=== PATIENT | female | born 1995 | race Caucasian/White ===

== ENCOUNTER 2017-03-21 08:27 | Emergency (ER) | payer OTHER ==
[~2017-03-21] VITALS: Ht 167.6 cm; Wt 81.7 kg
[~2017-03-21 08:27] MED LIST: ALLEGRA-D 12 H1 EAC1 PO; DEPO-SUBQ104 MG/0.6 SQ; IBUPROFEN 600600 M1 PO; MIDOL220 MG PO; MINOCIN100 MG; NOHOMEMEDICATIONS; TESSALON PERLE100 MG PO; VICODIN 5-5001 EACH PO; ZOFRAN ODT4 MG PO
[2017-03-21 08:51] LABS: URINE BILIRUBIN NEGATIVE (Negative); URINE BLOOD 3+ (Negative); URINE COLOR YELLOW; URINE GLUCOSE-RANDOM* NEGATIVE (Negative); URINE KETONES TRACE (Negative); URINE NITRITE NEGATIVE (Negative); URINE PROTEIN (DIPSTICK) NEGATIVE (Negative); URINE SPECIFIC GRAVITY 1.015 (1.003-1.035); URINE UROBILINOGEN 0.2 E.U./dl (0.2-1.0)
[2017-03-21 09:03] LABS: SQUAMOUS >10 Many /LPF (0-3)
[2017-03-21 09:04] LABS: CASTS None Seen /LPF (None Seen); CRYSTALS None Seen /LPF (None Seen); URINE WBC 0-5 Rare /HPF (0-5)
[2017-03-21 09:05] LABS: URINE RBC 3-10 Few /HPF (0-2)
[2017-03-21] MEDS ORDERED: ONDANSETRON HCL4 M2 PO ×2 (12:08→12:12)
[2017-03-21 12:22] VITALS: BP 94/44
== END 2017-03-21 12:15 | disposition home or self-care (01) ==
LOC: ER 08:27
PROVIDERS: Nurse Practitioner
DX: O21.9 Vomiting of pregnancy, unspecified (principal); Z3A.01 Less than 8 weeks gestation of pregnancy

== ENCOUNTER 2018-09-22 07:01 | Emergency (ER) | payer OTHER ==
[~2018-09-22] VITALS: Ht 167.6 cm; Wt 72.6 kg
[~2018-09-22 07:01] MED LIST changes: +ONDANSETRON HCL4 M2 PO
[2018-09-22 07:31] LABS: URINE BILIRUBIN NEGATIVE (Negative); URINE BLOOD NEGATIVE (Negative); URINE CLARITY CLEAR; URINE COLOR YELLOW; URINE GLUCOSE-RANDOM* NEGATIVE (Negative); URINE KETONES NEGATIVE (Negative); URINE LEUKOCYTES-REFLEX NEGATIVE (Negative); URINE NITRITE-REFLEX NEGATIVE (Negative); URINE PROTEIN (DIPSTICK) NEGATIVE (Negative); URINE SPECIFIC GRAVITY >= 1.030 (1.005-1.035); URINE UROBILINOGEN 0.2 E.U./dl (0.2-1.0)
[2018-09-22] MEDS ORDERED: PROTONIX40 MG PO (07:51)
[2018-09-22] MEDS ORDERED: ZOFRAN ODT4 MG PO (07:52)
[2018-09-22 07:54] VITALS: BP 113/68
== END 2018-09-22 07:58 | disposition home or self-care (01) ==
LOC: ER 07:01
PROVIDERS: Emergency Medicine
DX: R10.12 Left upper quadrant pain (principal); R11.10 Vomiting, unspecified; R05 Cough; R19.7 Diarrhea, unspecified; G40.909 Epilepsy, unspecified, not intractable, without status epilepticus

== ENCOUNTER 2019-01-19 13:50 | Emergency (ER) | payer OTHER ==
[~2019-01-19] VITALS: Ht 167.6 cm; Wt 72.6 kg
[~2019-01-19 13:50] MED LIST changes: +PROTONIX40 MG PO
[2019-01-19 13:55] VITALS: BP 112/43
[2019-01-19 14:07] LABS: URINE BILIRUBIN NEGATIVE (Negative); URINE BLOOD NEGATIVE (Negative); URINE CLARITY CLEAR; URINE COLOR YELLOW; URINE GLUCOSE-RANDOM* NEGATIVE (Negative); URINE KETONES NEGATIVE (Negative); URINE LEUKOCYTES-REFLEX NEGATIVE (Negative); URINE NITRITE-REFLEX NEGATIVE (Negative); URINE PROTEIN (DIPSTICK) NEGATIVE (Negative); URINE SPECIFIC GRAVITY 1.015 (1.005-1.035); URINE UROBILINOGEN 0.2 E.U./dl (0.2-1.0)
== END 2019-01-19 14:55 | disposition home or self-care (01) ==
LOC: ER 13:50
PROVIDERS: Physician Assistant
DX: N89.8 Other specified noninflammatory disorders of vagina (principal); R30.0 Dysuria

== ENCOUNTER 2021-05-29 19:22 | Emergency (ER) | payer OTHER ==
[~2021-05-29] VITALS: Ht 170.2 cm; Wt 104.3 kg
[2021-05-29 19:28] VITALS: BP 133/70
== END 2021-05-29 22:38 | disposition home or self-care (01) ==
LOC: ER 19:22
PROVIDERS: Nurse Practitioner
DX: J06.9 Acute upper respiratory infection, unspecified (principal); Z20.822 Contact with and (suspected) exposure to COVID-19; R05.9 Cough, unspecified